=== PATIENT | female | born 1970 | race Caucasian/White ===

== ENCOUNTER 2018-10-01 11:19 | Emergency (ER) | payer OTHER ==
[~2018-10-01] VITALS: Ht 165.1 cm; Wt 90.7 kg
[~2018-10-01 11:19] MED LIST: ANAPROX DS550 MG PO; CIPRO500 MG PO; FLAGYL500 MG PO; LISINOPRIL10 MG PO; TOPROL XL25 MG PO; VICODIN 5/500 505 MG PO
[2018-10-01] MEDS ORDERED: METFORMIN HYDR500 MG PO (11:28)
[2018-10-01] MEDS ORDERED: GABAPENTIN600 MG PO (11:28)
[2018-10-01] MEDS ORDERED: ATORVASTATIN CA20 M1 PO (11:29)
[2018-10-01] MEDS ORDERED: ETODOLAC300 M1 PO (11:29)
[2018-10-01] MEDS ORDERED: HYDROCODONE-AC1 EACH PO (11:30)
== END 2018-10-01 13:41 | disposition home or self-care (01) ==
LOC: ED 11:19
DX: S76.112A Strain of left quadriceps muscle, fascia and tendon, initial encounter (principal); M54.32 Sciatica, left side; Z88.2 Allergy status to sulfonamides; Z79.899 Other long term (current) drug therapy; Z79.84 Long term (current) use of oral hypoglycemic drugs; X58.XXXA Exposure to other specified factors, initial encounter; Y93.89 Activity, other specified; Y92.89 Other specified places as the place of occurrence of the external cause; Y99.8 Other external cause status

== ENCOUNTER → 2020-09-10 | Outpatient (CLI) | payer OTHER ==
[~2020-09-10] MED LIST changes: +ATORVASTATIN CA20 M1 PO; +Bactroban Oint22 GM NAS; +ETODOLAC300 M1 PO; +GABAPENTIN600 MG PO; +HYDROCODONE-AC1 EACH PO; +METFORMIN HYDR500 MG PO; +OMNICEF300 MG PO; +ONDANSETRON HYDR4 MG PO; +TRULICITY1.5 MG/0.5 SC
[2020-09-10 16:33] LABS: BILIRUBIN Negative (Negative); BLOOD Negative (Negative); CLARITY Clear (Clear); COLOR Yellow (Yellow); GLUCOSE Negative (Negative); KETONE Trace (Negative); LEUKO ESTERASE Negative (Negative); NITRITE Negative (Negative); PH 5.5 (4.5-8.0); SPECIFIC GRAVITY >= 1.030 (1.001-1.030)
[2020-09-10 16:34] LABS: HEMATOCRIT 41.3 % (37.0-47.0); MEAN CELL VOLUME 93.9 fl (81.0-99.0); MEAN CORPUSCULAR HGB 29.8 pg (27.0-31.0); MEAN CORPUSCULAR HGB CONC 31.7 g/dl (33.0-37.0); PLATELET COUNT AUTOMATED 367 10*3/uL (130-400); RED CELL DISTRI WIDTH 12.8 % (0-14.5); RETICULOCYTE % 1.41 % (0.50-2.50); WHITE BLOOD COUNT 13.3 10*3/uL (4.8-10.8)
[2020-09-10 16:49] LABS: RBC 0-2 rbc/hpf (0-2); WBC 0-2 wbc/hpf (0-5)
[2020-09-10 16:55] LABS: PLATELET SUFFICIENCY NORMAL (NORMAL); TOTAL CELLS COUNTED 100 #CELLS
[2020-09-10 17:02] LABS: ALBUMIN 3.8 gm/dl (3.1-4.5); CREATININE 1.4 mg/dL (0.55-1.02); POTASSIUM 3.7 mmol/L (3.5-5.1); TOTAL PROTEIN 7.5 gm/dL (6.4-8.2)
[2020-09-10 17:08] LABS: THYROID STIM HORMONE (HS) 1.37 uIU/ml (0.358-4.75)
[2020-09-10 17:11] LABS: FERRITIN 59.2 ng/mL (10.0-291.0); VITAMIN D, 25-HYDROXY 33.1 ng/mL (30-100)
== END | disposition home or self-care (01) ==
LOC: LAB 15:51
PROVIDERS: ATTEND Family Medicine
DX: E11.9 Type 2 diabetes mellitus without complications (principal); R79.89 Other specified abnormal findings of blood chemistry; R53.83 Other fatigue; E78.5 Hyperlipidemia, unspecified; E55.9 Vitamin D deficiency, unspecified

== ENCOUNTER 2020-09-26 03:29 | Inpatient (IN) | payer OTHER ==
[~2020-09-26] VITALS: Ht 165.1 cm; Wt 88.5 kg
[~2020-09-26 03:29] MED LIST changes: -Bactroban Oint22 GM NAS; -OMNICEF300 MG PO; -ONDANSETRON HYDR4 MG PO; -TRULICITY1.5 MG/0.5 SC
[2020-09-26 03:42] VITALS: BP 156/78
[2020-09-26 03:54] LABS: BILIRUBIN 1+ (Negative); BLOOD 1+ (Negative); CLARITY Turbid (Clear); COLOR Red (Yellow); GLUCOSE Negative (Negative); KETONE Negative (Negative); LEUKO ESTERASE 3+ (Negative); NITRITE Positive (Negative); SPECIFIC GRAVITY >= 1.030 (1.001-1.030); UROBILINOGEN 0.2 E.U./dl (0.0-1.0)
[2020-09-26 04:06] LABS: BACTERIA 3+
[2020-09-26 04:07] LABS: RBC TNTC rbc/hpf (0-2)
[2020-09-26 04:12] LABS: BASO # 0.1 10*3/uL (0.0-0.1); BASO % 0.5 % (0.0-1.0); EOS # 0.4 10*3/uL (0.0-0.4); EOS % 2.1 % (1.0-4.0); HEMATOCRIT 41.2 % (37.0-47.0); LYMPH # 2.9 10*3/uL (1.3-4.4); LYMPH % 16.3 % (27.0-41.0); MEAN CELL VOLUME 93.8 fl (81.0-99.0); MEAN CORPUSCULAR HGB 30.3 pg (27.0-31.0); MEAN CORPUSCULAR HGB CONC 32.3 g/dl (33.0-37.0); MONO # 1.4 10*3/uL (0.1-1.0); MONO % 7.8 % (3.0-9.0); NEUT # 12.8 10*3/uL (2.3-7.9); NEUT % 72.8 % (47.0-73.0); PLATELET COUNT AUTOMATED 343 10*3/uL (130-400); RED BLOOD COUNT 4.39 10*6/uL (4.10-5.10); RED CELL DISTRI WIDTH 12.7 % (0-14.5); WHITE BLOOD COUNT 17.5 10*3/uL (4.8-10.8)
[2020-09-26 04:27] LABS: ALBUMIN 3.7 gm/dl (3.1-4.5); ALKALINE PHOSPHATASE 101 U/L (45-117); BUN 22 mg/dl (7-24); CHLORIDE 108 mmol/L (98-107); CREATININE 1.07 mg/dL (0.55-1.02); POTASSIUM 3.7 mmol/L (3.5-5.1); SGOT/AST 7 IU/L (3-35); SGPT/ALT 16 U/L (12-78); SODIUM 141 mmol/L (136-145); TOTAL PROTEIN 7.4 gm/dL (6.4-8.2)
[2020-09-26 08:44] VITALS: BP 124/72
[2020-09-26 09:00] VITALS: BP 124/72
[2020-09-26] MEDS ORDERED: ONDANSETRON HYDR4 MG PO (09:18)
[2020-09-26] MEDS ORDERED: TRULICITY1.5 MG/0.5 SC (09:19)
[2020-09-26 12:00] VITALS: BP 112/62
[2020-09-26 16:00] VITALS: BP 105/59
[2020-09-26 20:00] VITALS: BP 94/66
[2020-09-27] VITALS: BP 108/68
[2020-09-27 06:19] LABS: BASO # 0.1 10*3/uL (0.0-0.1); BASO % 0.8 % (0.0-1.0); EOS # 0.3 10*3/uL (0.0-0.4); EOS % 2.6 % (1.0-4.0); HEMATOCRIT 38.8 % (37.0-47.0); LYMPH # 3.9 10*3/uL (1.3-4.4); MEAN CELL VOLUME 95.1 fl (81.0-99.0); MEAN CORPUSCULAR HGB 29.9 pg (27.0-31.0); MEAN CORPUSCULAR HGB CONC 31.4 g/dl (33.0-37.0); MEAN PLATELET VOLUME 10.3 fl (9.6-12.3); MONO # 0.9 10*3/uL (0.1-1.0); MONO % 8.4 % (3.0-9.0); NEUT # 5.3 10*3/uL (2.3-7.9); NEUT % 50.7 % (47.0-73.0); PLATELET COUNT AUTOMATED 313 10*3/uL (130-400); RED BLOOD COUNT 4.08 10*6/uL (4.10-5.10); WHITE BLOOD COUNT 10.4 10*3/uL (4.8-10.8)
[2020-09-27 06:40] LABS: ALKALINE PHOSPHATASE 86 U/L (45-117); BUN 17 mg/dl (7-24); CHLORIDE 113 mmol/L (98-107); CREATININE 0.67 mg/dL (0.55-1.02); POTASSIUM 4.4 mmol/L (3.5-5.1); SGOT/AST 15 IU/L (3-35); SGPT/ALT 15 U/L (12-78); SODIUM 144 mmol/L (136-145)
[2020-09-27 08:00] VITALS: BP 104/56
[2020-09-27 10:05] VITALS: BP 120/67
[2020-09-27 12:17] LABS: BILIRUBIN Negative (Negative); BLOOD Negative (Negative); CLARITY Clear (Clear); COLOR Yellow (Yellow); GLUCOSE Negative (Negative); KETONE Negative (Negative); LEUKO ESTERASE Negative (Negative); NITRITE Negative (Negative); PH 7.5 (4.5-8.0)
[2020-09-27 12:27] LABS: BACTERIA 1+; RBC 0-2 rbc/hpf (0-2)
[2020-09-27 13:00] VITALS: BP 114/73
[2020-09-27 16:00] VITALS: BP 113/52
[2020-09-27 20:00] VITALS: BP 105/64
[2020-09-28] VITALS: BP 129/74
[2020-09-28 08:00] VITALS: BP 127/72
[2020-09-28] MEDS ORDERED: Bactroban Oint22 GM NAS (09:49)
[2020-09-28] MEDS ORDERED: OMNICEF300 MG PO (09:49)
== END 2020-09-28 10:50 | disposition home or self-care (01) | DRG 720 ==
LOC: ED 03:29 → 4E 06:09 → EDHOLD 06:09 → 4E 08:28
PROVIDERS: Emergency Medicine; Family Medicine; Registered Nurse; ADMIT Internal Medicine; ATTEND Internal Medicine
DX: A41.9 Sepsis, unspecified organism (principal); N12 Tubulo-interstitial nephritis, not specified as acute or chronic; E11.65 Type 2 diabetes mellitus with hyperglycemia; D72.829 Elevated white blood cell count, unspecified; E44.0 Moderate protein-calorie malnutrition; I10 Essential (primary) hypertension; E78.2 Mixed hyperlipidemia; E87.8 Other disorders of electrolyte and fluid balance, not elsewhere classified; Z88.2 Allergy status to sulfonamides; E11.42 Type 2 diabetes mellitus with diabetic polyneuropathy; Z79.84 Long term (current) use of oral hypoglycemic drugs; Z79.899 Other long term (current) drug therapy; Z68.32 Body mass index [BMI] 32.0-32.9, adult

== ENCOUNTER → 2020-12-27 | Outpatient (CLI) | payer OTHER ==
[~2020-12-27] MED LIST changes: +Bactroban Oint22 GM NAS; +OMNICEF300 MG PO; +ONDANSETRON HYDR4 MG PO; +TRULICITY1.5 MG/0.5 SC
[2020-12-27 12:58] LABS: BASO # 0.1 10*3/uL (0.0-0.1); BASO % 0.5 % (0.0-1.0); EOS # 0.3 10*3/uL (0.0-0.4); HEMATOCRIT 41.8 % (37.0-47.0); LYMPH # 3.5 10*3/uL (1.3-4.4); MEAN CELL VOLUME 92.9 fl (81.0-99.0); MEAN CORPUSCULAR HGB 30.4 pg (27.0-31.0); MEAN CORPUSCULAR HGB CONC 32.8 g/dl (33.0-37.0); MEAN PLATELET VOLUME 10.5 fl (9.6-12.3); MONO # 0.8 10*3/uL (0.1-1.0); MONO % 6.3 % (3.0-9.0); NEUT # 8.2 10*3/uL (2.3-7.9); PLATELET COUNT AUTOMATED 382 10*3/uL (130-400); RED CELL DISTRI WIDTH 12.6 % (0-14.5); WHITE BLOOD COUNT 12.9 10*3/uL (4.8-10.8)
[2020-12-27 13:00] LABS: BILIRUBIN Negative (Negative); BLOOD Negative (Negative); CLARITY Clear (Clear); COLOR Dark Yellow (Yellow); GLUCOSE Negative (Negative); KETONE Trace (Negative); LEUKO ESTERASE Trace (Negative); NITRITE Negative (Negative); PH 5.5 (4.5-8.0); SPECIFIC GRAVITY >= 1.030 (1.001-1.030)
[2020-12-27 13:12] LABS: BACTERIA 1+; RBC 0-2 rbc/hpf (0-2)
[2020-12-27 13:28] LABS: ALBUMIN 3.8 gm/dl (3.1-4.5); BUN 22 mg/dl (7-24); CHLORIDE 103 mmol/L (98-107); CREATININE 0.84 mg/dL (0.55-1.02); POTASSIUM 3.9 mmol/L (3.5-5.1); SODIUM 137 mmol/L (136-145)
== END | disposition home or self-care (01) ==
LOC: LAB 12:21
PROVIDERS: ATTEND Internal Medicine Nephrology
DX: N17.9 Acute kidney failure, unspecified (principal)

== ENCOUNTER 2021-04-09 09:50 | Emergency (ER) | payer OTHER ==
[~2021-04-09] VITALS: Wt 90.7 kg
[2021-04-09 16:18] LABS: HEMATOCRIT 41.5 % (37.0-47.0); MEAN CELL VOLUME 94.7 fl (81.0-99.0); MEAN CORPUSCULAR HGB 31.3 pg (27.0-31.0); MEAN PLATELET VOLUME 9.4 fl (9.6-12.3); PLATELET COUNT AUTOMATED 393 10*3/uL (130-400); RED BLOOD COUNT 4.38 10*6/uL (4.10-5.10); RED CELL DISTRI WIDTH 13.4 % (0-14.5); WHITE BLOOD COUNT 16.5 10*3/uL (4.8-10.8)
[2021-04-09 16:35] LABS: ALKALINE PHOSPHATASE 85 U/L (45-117); BUN 17 mg/dl (7-24); CHLORIDE 106 mmol/L (98-107); CREATININE 0.79 mg/dL (0.55-1.02); SGOT/AST 16 IU/L (3-35); SGPT/ALT 22 U/L (12-78); SODIUM 141 mmol/L (136-145); TOTAL PROTEIN 7.8 gm/dL (6.4-8.2)
[2021-04-09 16:54] LABS: BILIRUBIN Negative (Negative); BLOOD 3+ (Negative); CLARITY Clear (Clear); COLOR Yellow (Yellow); GLUCOSE Negative (Negative); KETONE Trace (Negative); LEUKO ESTERASE 1+ (Negative); NITRITE Negative (Negative); SPECIFIC GRAVITY 1.025 (1.001-1.030)
[2021-04-09 16:59] LABS: ATYPICAL LYMPHS 3 % (0-0); TOTAL CELLS COUNTED 100 #CELLS
[2021-04-09 17:00] LABS: PLATELET SUFFICIENCY NORMAL (NORMAL)
[2021-04-09 17:09] LABS: BACTERIA 2+; RBC TNTC rbc/hpf (0-2)
[2021-04-09] MEDS ORDERED: CIPRO500 MG PO (17:55)
== END 2021-04-09 18:21 | disposition home or self-care (01) ==
LOC: ED 09:50
PROVIDERS: Emergency Medicine
DX: N30.80 Other cystitis without hematuria (principal); F17.200 Nicotine dependence, unspecified, uncomplicated; Z88.2 Allergy status to sulfonamides; Z79.899 Other long term (current) drug therapy

== ENCOUNTER 2021-11-14 17:54 | Inpatient (IN) | payer OTHER ==
[~2021-11-14] VITALS: Ht 172.7 cm; Wt 84.4 kg
[2021-11-14 18:01] VITALS: BP 141/90
[2021-11-14 18:40] LABS: BASO # 0.1 10*3/uL (0.0-0.1); BASO % 0.6 % (0.0-1.0); EOS # 0.5 10*3/uL (0.0-0.4); EOS % 3.2 % (1.0-4.0); HEMATOCRIT 39.5 % (37.0-47.0); LYMPH % 21.1 % (27.0-41.0); MEAN CELL VOLUME 92.5 fl (81.0-99.0); MEAN CORPUSCULAR HGB 30.9 pg (27.0-31.0); MEAN CORPUSCULAR HGB CONC 33.4 g/dl (33.0-37.0); MONO # 0.9 10*3/uL (0.1-1.0); MONO % 6.5 % (3.0-9.0); NEUT # 9.7 10*3/uL (2.3-7.9); NEUT % 68.4 % (47.0-73.0); PLATELET COUNT AUTOMATED 281 10*3/uL (130-400); RED BLOOD COUNT 4.27 10*6/uL (4.10-5.10); RED CELL DISTRI WIDTH 13.1 % (0-14.5); WHITE BLOOD COUNT 14.2 10*3/uL (4.8-10.8)
[2021-11-14 18:58] LABS: ALKALINE PHOSPHATASE 95 U/L (45-117); BUN 19 mg/dl (7-24); CHLORIDE 109 mmol/L (98-107); CREATININE 0.88 mg/dL (0.55-1.02); LIPASE 90 U/L (73-393); POTASSIUM 3.4 mmol/L (3.5-5.1); SGOT/AST 12 IU/L (3-35); SGPT/ALT 15 U/L (12-78); SODIUM 140 mmol/L (136-145); TOTAL PROTEIN 7.2 gm/dL (6.4-8.2)
[2021-11-14 21:11] LABS: BILIRUBIN Negative (Negative); BLOOD Negative (Negative); CLARITY Clear (Clear); COLOR Yellow (Yellow); GLUCOSE Negative (Negative); KETONE Negative (Negative); LEUKO ESTERASE Negative (Negative); NITRITE Negative (Negative); PH 6.5 (4.5-8.0); SPECIFIC GRAVITY >= 1.030 (1.001-1.030)
[2021-11-14] MEDS ORDERED: LISINOPRIL-HCT1 EACH PO (21:24)
[2021-11-14] MEDS ORDERED: OMEPRAZOLE40 MG PO (21:24)
[2021-11-14 21:25] VITALS: BP 119/66
[2021-11-14 21:34] LABS: BACTERIA TRACE; RBC 0-2 rbc/hpf (0-2)
[2021-11-15] VITALS (10 sets, daily range): BP systolic 92–136; BP diastolic 55–87
[2021-11-15 05:48] LABS: BUN 13 mg/dl (7-24); CHLORIDE 113 mmol/L (98-107); CHOLESTEROL 134 mg/dL (<200); CREATININE 0.66 mg/dL (0.55-1.02); POTASSIUM 3.6 mmol/L (3.5-5.1); SGOT/AST 10 IU/L (3-35); SGPT/ALT 12 U/L (12-78); SODIUM 142 mmol/L (136-145); TOTAL PROTEIN 5.9 gm/dL (6.4-8.2); TRIGLYCERIDES 126 mg/dl (<150)
[2021-11-15 05:50] LABS: ALKALINE PHOSPHATASE 77 U/L (45-117); LDL CHOLESTEROL 69 mg/dL (9-159)
[2021-11-15 06:04] LABS: BASO # 0.1 10*3/uL (0.0-0.1); BASO % 0.7 % (0.0-1.0); EOS # 0.6 10*3/uL (0.0-0.4); HEMATOCRIT 36.8 % (37.0-47.0); LYMPH # 3.9 10*3/uL (1.3-4.4); LYMPH % 35.5 % (27.0-41.0); MEAN CELL VOLUME 94.4 fl (81.0-99.0); MEAN CORPUSCULAR HGB 30.5 pg (27.0-31.0); MEAN CORPUSCULAR HGB CONC 32.3 g/dl (33.0-37.0); MEAN PLATELET VOLUME 10.2 fl (9.6-12.3); MONO # 0.8 10*3/uL (0.1-1.0); MONO % 7.4 % (3.0-9.0); NEUT # 5.6 10*3/uL (2.3-7.9); NEUT % 51.1 % (47.0-73.0); PLATELET COUNT AUTOMATED 277 10*3/uL (130-400); RED CELL DISTRI WIDTH 13.2 % (0-14.5); WHITE BLOOD COUNT 10.9 10*3/uL (4.8-10.8)
[2021-11-16] VITALS: BP 75/36
[2021-11-16 06:23] LABS: BASO # 0.1 10*3/uL (0.0-0.1); BASO % 1.1 % (0.0-1.0); EOS # 0.5 10*3/uL (0.0-0.4); EOS % 5.8 % (1.0-4.0); HEMATOCRIT 39.4 % (37.0-47.0); LYMPH # 2.9 10*3/uL (1.3-4.4); LYMPH % 34.7 % (27.0-41.0); MEAN CELL VOLUME 92.9 fl (81.0-99.0); MEAN CORPUSCULAR HGB 30.7 pg (27.0-31.0); MEAN PLATELET VOLUME 10.3 fl (9.6-12.3); MONO # 0.6 10*3/uL (0.1-1.0); MONO % 7.5 % (3.0-9.0); NEUT # 4.3 10*3/uL (2.3-7.9); NEUT % 50.7 % (47.0-73.0); PLATELET COUNT AUTOMATED 324 10*3/uL (130-400); RED BLOOD COUNT 4.24 10*6/uL (4.10-5.10); RED CELL DISTRI WIDTH 12.8 % (0-14.5); WHITE BLOOD COUNT 8.4 10*3/uL (4.8-10.8)
[2021-11-16 06:32] LABS: BUN 7 mg/dl (7-24); CHLORIDE 114 mmol/L (98-107); CREATININE 0.62 mg/dL (0.55-1.02); POTASSIUM 3.7 mmol/L (3.5-5.1); SODIUM 144 mmol/L (136-145)
[2021-11-16 08:00] VITALS: BP 146/75
[2021-11-16 12:00] VITALS: BP 145/60
[2021-11-16 16:00] VITALS: BP 151/95
[2021-11-16 20:00] VITALS: BP 126/74
[2021-11-17] VITALS: BP 149/80
[2021-11-17 05:57] LABS: BUN 8 mg/dl (7-24); CHLORIDE 112 mmol/L (98-107); CREATININE 0.79 mg/dL (0.55-1.02); SODIUM 144 mmol/L (136-145)
[2021-11-17 06:23] LABS: BASO # 0.1 10*3/uL (0.0-0.1); EOS # 0.3 10*3/uL (0.0-0.4); EOS % 4.1 % (1.0-4.0); HEMATOCRIT 37.5 % (37.0-47.0); LYMPH # 2.3 10*3/uL (1.3-4.4); LYMPH % 28.7 % (27.0-41.0); MEAN CORPUSCULAR HGB 31.1 pg (27.0-31.0); MEAN CORPUSCULAR HGB CONC 33.1 g/dl (33.0-37.0); MEAN PLATELET VOLUME 10.7 fl (9.6-12.3); MONO # 0.6 10*3/uL (0.1-1.0); MONO % 7.3 % (3.0-9.0); NEUT # 4.8 10*3/uL (2.3-7.9); NEUT % 58.7 % (47.0-73.0); PLATELET COUNT AUTOMATED 302 10*3/uL (130-400); RED BLOOD COUNT 3.99 10*6/uL (4.10-5.10); RED CELL DISTRI WIDTH 12.5 % (0-14.5); WHITE BLOOD COUNT 8.1 10*3/uL (4.8-10.8)
[2021-11-17] MEDS ORDERED: CIPRO500 MG PO (07:16)
[2021-11-17] MEDS ORDERED: METRONIDAZOLE500 M1 PO (07:16)
[2021-11-17] MEDS ORDERED: HYDROCODONE-AC1 EAC1 PO (07:16)
== END 2021-11-17 07:53 | disposition home or self-care (01) | DRG 720 ==
LOC: ED 17:54 → EDHOLD 21:54 → 4E 11-15 14:32
PROVIDERS: Hospitalist; Internal Medicine; Physician Assistant; Student in an Organized Health Care Education/Training Program; ADMIT Student in an Organized Health Care Education/Training Program; ATTEND Student in an Organized Health Care Education/Training Program
DX: A41.9 Sepsis, unspecified organism (principal); K57.32 Diverticulitis of large intestine without perforation or abscess without bleeding; E78.5 Hyperlipidemia, unspecified; I10 Essential (primary) hypertension; D72.829 Elevated white blood cell count, unspecified; E11.65 Type 2 diabetes mellitus with hyperglycemia; E78.2 Mixed hyperlipidemia; E87.6 Hypokalemia; E11.42 Type 2 diabetes mellitus with diabetic polyneuropathy; R79.82 Elevated C-reactive protein (CRP); Z88.2 Allergy status to sulfonamides; Z98.51 Tubal ligation status; Z82.49 Family history of ischemic heart disease and other diseases of the circulatory system; Z83.3 Family history of diabetes mellitus

== ENCOUNTER 2021-11-19 07:48 | Emergency (ER) | payer OTHER ==
[~2021-11-19] VITALS: Ht 162.5 cm; Wt 84.4 kg
[~2021-11-19 07:48] MED LIST changes: +HYDROCODONE-AC1 EAC1 PO; +LISINOPRIL-HCT1 EACH PO; +METRONIDAZOLE500 M1 PO; +OMEPRAZOLE40 MG PO
[2021-11-19 08:25] LABS: BASO # 0.1 10*3/uL (0.0-0.1); BASO % 0.5 % (0.0-1.0); EOS # 0.3 10*3/uL (0.0-0.4); EOS % 2.3 % (1.0-4.0); HEMATOCRIT 45.2 % (37.0-47.0); LYMPH # 2.7 10*3/uL (1.3-4.4); LYMPH % 21.2 % (27.0-41.0); MEAN CELL VOLUME 94.6 fl (81.0-99.0); MEAN CORPUSCULAR HGB 30.8 pg (27.0-31.0); MEAN CORPUSCULAR HGB CONC 32.5 g/dl (33.0-37.0); MEAN PLATELET VOLUME 10.1 fl (9.6-12.3); MONO # 0.8 10*3/uL (0.1-1.0); MONO % 6.5 % (3.0-9.0); NEUT # 8.8 10*3/uL (2.3-7.9); NEUT % 69.2 % (47.0-73.0); PLATELET COUNT AUTOMATED 382 10*3/uL (130-400); RED BLOOD COUNT 4.78 10*6/uL (4.10-5.10); RED CELL DISTRI WIDTH 12.9 % (0-14.5); WHITE BLOOD COUNT 12.7 10*3/uL (4.8-10.8)
[2021-11-19 08:39] LABS: ALKALINE PHOSPHATASE 83 U/L (45-117); BUN 10 mg/dl (7-24); CHLORIDE 108 mmol/L (98-107); CREATININE 1.06 mg/dL (0.55-1.02); LIPASE 70 U/L (73-393); POTASSIUM 3.9 mmol/L (3.5-5.1); SGOT/AST 42 IU/L (3-35); SGPT/ALT 44 U/L (12-78); SODIUM 140 mmol/L (136-145)
[2021-11-19 08:45] LABS: BILIRUBIN Negative (Negative); BLOOD Negative (Negative); CLARITY Cloudy (Clear); COLOR Yellow (Yellow); GLUCOSE Negative (Negative); KETONE Trace (Negative); LEUKO ESTERASE 1+ (Negative); NITRITE Negative (Negative); PH 6.5 (4.5-8.0)
[2021-11-19 08:55] LABS: BACTERIA 1+
[2021-11-19] MEDS ORDERED: PERCOCET 5-3251 EACH PO (10:32)
[2021-11-19] MEDS ORDERED: ZOFRAN4 MG PO (10:32)
== END 2021-11-19 10:38 | disposition home or self-care (01) ==
LOC: ED 07:48
PROVIDERS: Family Medicine
DX: K57.32 Diverticulitis of large intestine without perforation or abscess without bleeding (principal); F17.200 Nicotine dependence, unspecified, uncomplicated; Z88.2 Allergy status to sulfonamides; Z79.899 Other long term (current) drug therapy; Z98.51 Tubal ligation status

== ENCOUNTER 2022-01-15 01:13 | Emergency (ER) | payer OTHER ==
[~2022-01-15] VITALS: Ht 162.5 cm; Wt 81.2 kg
[~2022-01-15 01:13] MED LIST changes: +PERCOCET 5-3251 EACH PO; +ZOFRAN4 MG PO
[2022-01-15 01:40] LABS: BASO # 0.1 10*3/uL (0.0-0.1); BASO % 0.5 % (0.0-1.0); EOS # 0.4 10*3/uL (0.0-0.4); EOS % 3.3 % (1.0-4.0); HEMATOCRIT 40.3 % (37.0-47.0); LYMPH # 3.1 10*3/uL (1.3-4.4); LYMPH % 23.4 % (27.0-41.0); MEAN CELL VOLUME 93.3 fl (81.0-99.0); MEAN CORPUSCULAR HGB 30.8 pg (27.0-31.0); MEAN PLATELET VOLUME 9.6 fl (9.6-12.3); MONO # 0.9 10*3/uL (0.1-1.0); MONO % 6.7 % (3.0-9.0); NEUT # 8.7 10*3/uL (2.3-7.9); NEUT % 65.9 % (47.0-73.0); PLATELET COUNT AUTOMATED 339 10*3/uL (130-400); RED BLOOD COUNT 4.32 10*6/uL (4.10-5.10); RED CELL DISTRI WIDTH 12.8 % (0-14.5); WHITE BLOOD COUNT 13.1 10*3/uL (4.8-10.8)
[2022-01-15 01:56] LABS: ALKALINE PHOSPHATASE 78 U/L (45-117); BUN 15 mg/dl (7-24); CHLORIDE 107 mmol/L (98-107); CREATININE 0.81 mg/dL (0.55-1.02); POTASSIUM 3.5 mmol/L (3.5-5.1); SGOT/AST 8 IU/L (3-35); SGPT/ALT 14 U/L (12-78); SODIUM 141 mmol/L (136-145); TOTAL PROTEIN 6.5 gm/dL (6.4-8.2)
[2022-01-15 02:03] LABS: BILIRUBIN Negative (Negative); BLOOD Negative (Negative); CLARITY Clear (Clear); COLOR Yellow (Yellow); GLUCOSE Negative (Negative); KETONE Negative (Negative); LEUKO ESTERASE 1+ (Negative); NITRITE Negative (Negative); PH 7.5 (4.5-8.0); SPECIFIC GRAVITY 1.015 (1.001-1.030)
[2022-01-15] MEDS ORDERED: 'CIPRO500 M1 PO (04:15)
[2022-01-15] MEDS ORDERED: METRONIDAZOLE500 M1 PO (04:15)
== END 2022-01-15 05:25 | disposition home or self-care (01) ==
LOC: ED 01:13
PROVIDERS: Emergency Medicine
DX: K57.32 Diverticulitis of large intestine without perforation or abscess without bleeding (principal); F17.200 Nicotine dependence, unspecified, uncomplicated; Z88.2 Allergy status to sulfonamides; Z79.899 Other long term (current) drug therapy; Z98.51 Tubal ligation status

== ENCOUNTER → 2023-04-23 | Outpatient (CLI) | payer OTHER ==
[~2023-04-23] MED LIST changes: +'CIPRO500 M1 PO
[2023-04-23 16:35] LABS: BASO # 0.1 10*3/uL (0.0-0.1); BASO % 0.6 % (0.0-1.0); EOS # 0.3 10*3/uL (0.0-0.4); EOS % 2.5 % (1.0-4.0); HEMATOCRIT 42.2 % (37.0-47.0); LYMPH # 3.4 10*3/uL (1.3-4.4); LYMPH % 30.2 % (27.0-41.0); MEAN CELL VOLUME 95.9 fl (81.0-99.0); MEAN CORPUSCULAR HGB 30.9 pg (27.0-31.0); MEAN CORPUSCULAR HGB CONC 32.2 g/dl (33.0-37.0); MEAN PLATELET VOLUME 9.6 fl (9.6-12.3); MONO # 0.8 10*3/uL (0.1-1.0); MONO % 6.9 % (3.0-9.0); NEUT # 6.8 10*3/uL (2.3-7.9); NEUT % 59.5 % (47.0-73.0); PLATELET COUNT AUTOMATED 318 10*3/uL (130-400); RED CELL DISTRI WIDTH 12.9 % (0-14.5); RETICULOCYTE % 1.85 % (0.50-2.50); WHITE BLOOD COUNT 11.3 10*3/uL (4.8-10.8)
[2023-04-23 16:42] LABS: BILIRUBIN Negative (Negative); BLOOD Negative (Negative); CLARITY Clear (Clear); COLOR Yellow (Yellow); GLUCOSE Negative (Negative); KETONE Negative (Negative); LEUKO ESTERASE Negative (Negative); NITRITE Negative (Negative); PH 5.5 (4.5-8.0); SPECIFIC GRAVITY 1.025 (1.001-1.030)
[2023-04-23 16:51] LABS: BACTERIA TRACE; RBC 0-2 rbc/hpf (0-2); WBC 0-2 wbc/hpf (0-5)
[2023-04-23 17:01] LABS: ALKALINE PHOSPHATASE 92 U/L (46-116); BUN 16 mg/dl (9-23); CHLORIDE 103 mmol/L (98-107); CHOLESTEROL 226 mg/dL (<200); GAMMA GLUTAMYL TRANSPEPTIDASE 13 U/L (0-73); LDL CHOLESTEROL 153 mg/dL (9-159); POTASSIUM 3.8 mmol/L (3.4-5.1); SGPT/ALT 8 U/L (10-49); T3 UPTAKE 22.7 % (22.4-36.7); THYROXINE (T4) TOTAL 8.9 ug/dl (4.5-10.9); TOTAL PROTEIN 7.4 gm/dL (6.0-8.0); TRIGLYCERIDES 119 mg/dl (<150)
[2023-04-23 17:03] LABS: VITAMIN D, 25-HYDROXY 36.8 ng/mL (30-100)
== END | disposition home or self-care (01) ==
LOC: LAB 16:11
PROVIDERS: ATTEND Family Medicine
DX: R79.89 Other specified abnormal findings of blood chemistry (principal); R53.83 Other fatigue; E55.9 Vitamin D deficiency, unspecified; E78.5 Hyperlipidemia, unspecified

== ENCOUNTER 2024-02-01 16:40 | Emergency (ER) | payer OTHER ==
[~2024-02-01] VITALS: Ht 165.1 cm; Wt 92.5 kg
[2024-02-01 17:03] LABS: BASO # 0.1 10*3/uL (0.0-0.1); BASO % 0.7 % (0.0-1.0); EOS # 0.4 10*3/uL (0.0-0.4); EOS % 2.2 % (1.0-4.0); HEMATOCRIT 45.8 % (37.0-47.0); LYMPH # 2.6 10*3/uL (1.3-4.4); MEAN CELL VOLUME 92.5 fl (81.0-99.0); MEAN CORPUSCULAR HGB 30.1 pg (27.0-31.0); MEAN CORPUSCULAR HGB CONC 32.5 g/dl (33.0-37.0); MONO # 0.9 10*3/uL (0.1-1.0); MONO % 4.9 % (3.0-9.0); NEUT # 13.3 10*3/uL (2.3-7.9); NEUT % 76.7 % (47.0-73.0); PLATELET COUNT AUTOMATED 307 10*3/uL (130-400); RED BLOOD COUNT 4.95 10*6/uL (4.10-5.10); WHITE BLOOD COUNT 17.4 10*3/uL (4.8-10.8)
[2024-02-01] MEDS ORDERED: ASPIRIN, CHEWABLE 81 MG TAB PO ONE (17:05)
[2024-02-01] MEDS ORDERED: HEPARIN SODIUM 250 ML IV SCH (17:05)
[2024-02-01] MEDS ORDERED: SODIUM CHLORIDE 0.9% 1,000 ML IV ONE (17:05)
[2024-02-01] MEDS ORDERED: TICAGRELOR 90 MG TABLET PO ONE (17:15)
[2024-02-01] MEDS ORDERED: fentaNYL CITRATE 100 MCG/2 ML VIAL IV ONE (17:25)
[2024-02-01 17:36] LABS: BUN 11 mg/dl (9-23); CHLORIDE 106 mmol/L (98-107); POTASSIUM 3.6 mmol/L (3.4-5.1)
== END 2024-02-01 17:53 | disposition short-term general hospital (02) ==
LOC: ED 16:40
PROVIDERS: Nurse Practitioner Family
DX: I21.3 ST elevation (STEMI) myocardial infarction of unspecified site (principal); M79.602 Pain in left arm; E87.6 Hypokalemia; E78.5 Hyperlipidemia, unspecified; I10 Essential (primary) hypertension; E11.40 Type 2 diabetes mellitus with diabetic neuropathy, unspecified; M19.90 Unspecified osteoarthritis, unspecified site; K21.9 Gastro-esophageal reflux disease without esophagitis; Z88.2 Allergy status to sulfonamides; Z98.51 Tubal ligation status; Z72.0 Tobacco use

== ENCOUNTER 2024-05-15 12:25 | Emergency (ER) | payer OTHER ==
[~2024-05-15] VITALS: Ht 165.1 cm; Wt 90.4 kg
[2024-05-15 12:54] LABS: BASO # 0.1 10*3/uL (0.0-0.1); BASO % 0.4 % (0.0-1.0); EOS # 0.3 10*3/uL (0.0-0.4); EOS % 2.2 % (1.0-4.0); HEMATOCRIT 40.5 % (37.0-47.0); LYMPH # 2.3 10*3/uL (1.3-4.4); LYMPH % 17.3 % (27.0-41.0); MEAN CELL VOLUME 92.5 fl (81.0-99.0); MEAN CORPUSCULAR HGB 29.7 pg (27.0-31.0); MEAN CORPUSCULAR HGB CONC 32.1 g/dl (33.0-37.0); MEAN PLATELET VOLUME 10.1 fl (9.6-12.3); MONO # 0.8 10*3/uL (0.1-1.0); MONO % 5.8 % (3.0-9.0); NEUT # 9.9 10*3/uL (2.3-7.9); PLATELET COUNT AUTOMATED 269 10*3/uL (130-400); RED BLOOD COUNT 4.38 10*6/uL (4.10-5.10); RED CELL DISTRI WIDTH 12.3 % (0-14.5); WHITE BLOOD COUNT 13.4 10*3/uL (4.8-10.8)
[2024-05-15] MEDS ORDERED: MORPHINE Sulfate 2 MG/ML SYR IV ONE (12:55)
[2024-05-15] MEDS ORDERED: LISINOPRIL20 MG PO (12:56)
[2024-05-15] MEDS ORDERED: ATORVASTATIN CA80 M1 PO (12:57)
[2024-05-15] MEDS ORDERED: ASPIRIN ADULT L81 M2 PO (12:58)
[2024-05-15] MEDS ORDERED: ALPRAZOLAM0.5 M3 PO (12:59)
[2024-05-15] MEDS ORDERED: PRASUGREL HCL10 MG PO (13:00)
[2024-05-15 13:15] LABS: BUN 12 mg/dl (9-23); CHLORIDE 105 mmol/L (98-107); POTASSIUM 3.5 mmol/L (3.4-5.1)
[2024-05-15 13:33] LABS: BILIRUBIN Negative (Negative); BLOOD Negative (Negative); CLARITY Clear (Clear); COLOR Yellow (Yellow); GLUCOSE Negative (Negative); KETONE Negative (Negative); LEUKO ESTERASE Negative (Negative); NITRITE Negative (Negative); SPECIFIC GRAVITY <= 1.005 (1.001-1.030); UROBILINOGEN 0.2 E.U./dl (0.0-1.0)
[2024-05-15] MEDS ORDERED: MAGNESIUM SULFATE 50 ML IV ONE (13:35)
[2024-05-15 13:44] LABS: BACTERIA TRACE; EPITHELIAL CELLS 0-2; RBC 0-2 rbc/hpf (0-2); WBC 0-2 wbc/hpf (0-5)
== END 2024-05-15 15:15 | disposition home or self-care (01) ==
LOC: ED 12:25
PROVIDERS: Nurse Practitioner Family
DX: R07.89 Other chest pain (principal); E83.42 Hypomagnesemia; M25.512 Pain in left shoulder; M54.2 Cervicalgia; E87.6 Hypokalemia; E11.40 Type 2 diabetes mellitus with diabetic neuropathy, unspecified; E78.5 Hyperlipidemia, unspecified; I10 Essential (primary) hypertension; M19.90 Unspecified osteoarthritis, unspecified site; I25.2 Old myocardial infarction; F17.200 Nicotine dependence, unspecified, uncomplicated; Z88.2 Allergy status to sulfonamides; Z98.51 Tubal ligation status

== ENCOUNTER → 2025-03-15 | Outpatient (CLI) | payer OTHER ==
[~2025-03-15] MED LIST changes: +ALPRAZOLAM0.5 M3 PO; +ASPIRIN ADULT L81 M2 PO; +ATORVASTATIN CA80 M1 PO; +LISINOPRIL20 MG PO; +PRASUGREL HCL10 MG PO
[2025-03-15 10:36] LABS: BASO # 0.1 10*3/uL (0.0-0.1); BASO % 0.9 % (0.0-1.0); EOS # 0.5 10*3/uL (0.0-0.4); EOS % 5.6 % (1.0-4.0); MEAN CELL VOLUME 92.1 fl (81.0-99.0); MEAN CORPUSCULAR HGB 28.9 pg (27.0-31.0); MEAN PLATELET VOLUME 10.3 fl (9.6-12.3); MONO # 0.6 10*3/uL (0.1-1.0); MONO % 6.1 % (3.0-9.0); NEUT # 5.7 10*3/uL (2.3-7.9); NEUT % 59.1 % (47.0-73.0); NUCLEATED RED BLOOD CELL 0.0 % (0.0-0.0); NUCLEATED RED BLOOD CELL 0.0 10*3/uL (0.0-0.0); PLATELET COUNT AUTOMATED 264 10*3/uL (130-400); RED CELL DISTRI WIDTH 12.8 % (0-14.5); RETICULOCYTE % 1.55 % (0.50-2.50)
[2025-03-15 10:39] LABS: BILIRUBIN Negative (Negative); BLOOD Negative (Negative); CLARITY Clear (Clear); COLOR Yellow (Yellow); KETONE Negative (Negative); LEUKO ESTERASE Negative (Negative); NITRITE Negative (Negative); PH 6.5 (4.5-8.0); SPECIFIC GRAVITY 1.020 (1.001-1.030); UROBILINOGEN 1.0 E.U./dl (0.0-1.0)
[2025-03-15 10:54] LABS: EPITHELIAL CELLS 0-2
[2025-03-15 10:55] LABS: BACTERIA 2+; WBC 0-2 wbc/hpf (0-5)
[2025-03-15 11:18] LABS: BUN 12 mg/dl (9-23); GAMMA GLUTAMYL TRANSFERASE 16 U/L (0-38); LDL CHOLESTEROL 74 mg/dL (9-159); SGPT/ALT 11 U/L (5-49); T3 UPTAKE 27.4 % (22.4-36.7); THYROXINE (T4) TOTAL 7.3 ug/dl (4.5-10.9); VITAMIN D, 25-HYDROXY 33.4 ng/mL (30-100)
== END | disposition home or self-care (01) ==
LOC: LAB 10:17
PROVIDERS: ATTEND Family Medicine
DX: E78.5 Hyperlipidemia, unspecified (principal); E55.9 Vitamin D deficiency, unspecified; R53.83 Other fatigue; R79.89 Other specified abnormal findings of blood chemistry